=== PATIENT | female | born 1950 | race Caucasian/White ===

== ENCOUNTER → 2019-09-30 | Outpatient (CLI) | payer MEDICARE, OTHER ==
[~2019-09-30] MED LIST: ASPI-630 PO; AZEL23SP NS; CLOB15CR2 TP; ESTR30CR VG; LACT1CAP6 PO; LISI-130 PO; MONT10TA49 PO; OMEP1CAP PO; SIMV20TA18 PO
--- NOTE | 2019-09-30 15:52 | KCIC ---
Bone mineral density study dated 09/30/2019. Indication: Postmenopausal. Findings: Lower lumbar spine: BMD (g/cm2): Total L1-L4.......... 1.138. . T-Score: Total L1-L4.................... 0.8. Z-Score: Total L1-L4 ................... 2.9. Left Hip: BMD (g/cm2): Total .......... 0.905. . T-Score: Total .................... -0.3. Z-Score: Total ...................1.2 World Health Organization criteria for BMD interpretation classify patients as Normal (T-score at or above -1.0), Osteopenic (T-score between -1.0 and -2.5), or Osteoporotic (T-score at or below -2.5). Impression: According to the World Health Organization, bone mineral density values are within the range of normal. Electronically signed by: Dar Small MD (09/30/2019 3:28 PM) [id number]
== END | disposition home or self-care (01) ==
LOC: KCIC DEXA 10:00
PROVIDERS: ATTEND Family Medicine
DX: M85.80 Other specified disorders of bone density and structure, unspecified site (principal); Z78.0 Asymptomatic menopausal state
CPT/HCPCS: 77080